=== PATIENT | male | born 1940 ===

== ENCOUNTER 2022-03-28 15:08 | Inpatient (IN) | payer MEDICARE, MEDICAID ==
[2022-03-28 17:17] LABS: ANION GAP 8.2 meq/L (7-15); CHLORIDE,CL 98 mmol/L (98-107); ESTIMATED GFR 45 mL/min (>=60); SODIUM,NA 135 mmol/L (136-145)
[2022-03-28] MEDS ORDERED: Nitroglycerin 0.4 MG Tab.SL SL PRN (18:49)
[2022-03-28] MEDS ORDERED: Polyethylene Glycol 3350 Powder 17 GM Packet PO PRN (18:49)
[2022-03-28] MEDS ORDERED: Apixaban 5 MG Tab PO SCH (19:00)
[2022-03-28] MEDS: metroNIDAZOLE/Normal Saline 500 MG in Premix Bag 1 BAG IV SCH (19:48)
[2022-03-28] MEDS: Metoprolol Succinate 25 MG Tab.ER PO SCH (19:59)
[2022-03-28] MEDS ORDERED: Donepezil 10 MG Tab PO SCH (20:00)
[2022-03-28] MEDS ORDERED: Non-Formulary Medication 1 Each (Divalproex Sodium 500 MG Tablet.Dr) PO SCH (20:00)
[2022-03-28] MEDS ORDERED: Non-Formulary Medication 1 Each (Insulin Glargine,Hum.Rec.Anlog 100 UNIT/ML Insuln.Pen) SQ SCH (20:00)
[2022-03-28] MEDS ORDERED: Polyvinyl Alcohol 1.4% Ophth Soln 15 ML Bottle EYEBOTH SCH (20:00)
[2022-03-28] MEDS: Furosemide 20 MG Tab PO SCH (20:01)
[2022-03-28] MEDS ORDERED: Vancomycin 1.5 GM in Sodium Chloride 0.9% 500 ML IV SCH (21:00)
[2022-03-28] MEDS: Divalproex Sodium Delayed-Release 250 MG Tab.CR PO SCH (21:42)
[2022-03-28] MEDS: Donepezil 10 MG Tab PO SCH (21:44)
[2022-03-28] MEDS: Polyvinyl Alcohol 1.4% Ophth Soln 15 ML Bottle EYEBOTH SCH (21:49)
[2022-03-28] MEDS: Apixaban 5 MG Tab PO SCH (21:49)
[2022-03-28] MEDS: Insulin Glarg,Human.Rec.Analog 100 Unit/ML SUBCUT SCH (21:53)
[2022-03-28] MEDS ORDERED: Temazepam 15 MG Cap PO PRN (22:21)
[2022-03-28] MEDS: Sodium Chloride 0.9% 10 ML Syringe FLUSH PRN (23:09)
[2022-03-29] MEDS: Sodium Chloride 0.9% 10 ML Syringe FLUSH PRN ×2 (03:59→22:59)
[2022-03-29] MEDS: metroNIDAZOLE/Normal Saline 500 MG in Premix Bag 1 BAG IV SCH ×3 (03:59→18:02)
[2022-03-29] MEDS: Gabapentin 100 MG Cap PO SCH ×3 (07:47→17:32)
[2022-03-29] MEDS: Metoprolol Succinate 25 MG Tab.ER PO SCH (07:48)
[2022-03-29] MEDS: Divalproex Sodium Delayed-Release 250 MG Tab.CR PO SCH ×4 (07:48→19:43)
[2022-03-29] MEDS: Apixaban 5 MG Tab PO SCH ×2 (07:48→17:32)
[2022-03-29] MEDS: Magnesium Oxide 400 MG Tab PO SCH ×2 (07:48→17:32)
[2022-03-29] MEDS: Thiamine 100 MG Tab PO SCH (07:49)
[2022-03-29] MEDS: Furosemide 20 MG Tab PO SCH (07:49)
[2022-03-29] MEDS: Isosorbide Mononitrate 30 MG Tab.ER PO SCH (07:49)
[2022-03-29] MEDS: Tamsulosin 0.4 MG Cap.ER PO SCH (07:49)
[2022-03-29] MEDS: Acetaminophen 500 MG Tab PO SCH ×3 (07:49→17:32)
[2022-03-29] MEDS: Polyvinyl Alcohol 1.4% Ophth Soln 15 ML Bottle EYEBOTH SCH ×4 (07:50→19:44)
[2022-03-29] MEDS: Cholecalciferol (Vitamin D3) 10 MCG Tab PO SCH (07:51)
[2022-03-29] MEDS ORDERED: Gabapentin 300 MG Cap PO SCH (08:00)
[2022-03-29] MEDS ORDERED: Non-Formulary Medication 1 Each (Cholecalciferol (Vitamin D3) [Vitamin D3] 400 UNIT Capsul PO SCH (08:00)
[2022-03-29] MEDS ORDERED: Non-Formulary Medication 1 Each (Magnesium [Magnesium] 250 MG Tablet) PO SCH (08:00)
[2022-03-29] MEDS: Non-Formulary Medication 1 Each (Sitagliptin 100 MG Tablet) PO SCH (08:22)
[2022-03-29 11:41] LABS: ANION GAP 8.9 meq/L (7-15)
[2022-03-29] MEDS: Donepezil 10 MG Tab PO SCH (19:42)
[2022-03-29] MEDS: Insulin Glarg,Human.Rec.Analog 100 Unit/ML SUBCUT SCH (19:44)
[2022-03-30] MEDS ORDERED: Sodium Chloride 0.9% 500 ML IV ONE (00:52)
[2022-03-30] MEDS ORDERED: Menthol 10%/Methyl Salicylate 15% 85 GM Tube TOP PRN (00:52)
[2022-03-30] MEDS: Sodium Chloride 0.9% 10 ML Syringe FLUSH PRN ×4 (01:14→21:44)
[2022-03-30] MEDS: metroNIDAZOLE/Normal Saline 500 MG in Premix Bag 1 BAG IV SCH ×3 (02:19→18:01)
[2022-03-30] MEDS: Magnesium Oxide 400 MG Tab PO SCH ×2 (08:34→17:22)
[2022-03-30] MEDS: Gabapentin 100 MG Cap PO SCH ×3 (08:34→17:23)
[2022-03-30] MEDS: Tamsulosin 0.4 MG Cap.ER PO SCH (08:34)
[2022-03-30] MEDS: Polyvinyl Alcohol 1.4% Ophth Soln 15 ML Bottle EYEBOTH SCH ×4 (08:34→19:56)
[2022-03-30] MEDS: Acetaminophen 500 MG Tab PO SCH ×3 (08:34→17:22)
[2022-03-30] MEDS: Cholecalciferol (Vitamin D3) 10 MCG Tab PO SCH (08:34)
[2022-03-30] MEDS: Thiamine 100 MG Tab PO SCH (08:35)
[2022-03-30] MEDS: Furosemide 20 MG Tab PO SCH (08:36)
[2022-03-30] MEDS: Apixaban 5 MG Tab PO SCH ×2 (08:36→17:23)
[2022-03-30] MEDS: Divalproex Sodium Delayed-Release 250 MG Tab.CR PO SCH ×4 (08:36→19:56)
[2022-03-30] MEDS: Isosorbide Mononitrate 30 MG Tab.ER PO SCH (08:44)
[2022-03-30] MEDS: Metoprolol Succinate 25 MG Tab.ER PO SCH (08:44)
[2022-03-30] MEDS: Non-Formulary Medication 1 Each (Sitagliptin 100 MG Tablet) PO SCH (08:45)
[2022-03-30] MEDS: Donepezil 10 MG Tab PO SCH (19:55)
[2022-03-30] MEDS: Insulin Glarg,Human.Rec.Analog 100 Unit/ML SUBCUT SCH (19:57)
[2022-03-31] MEDS: Sodium Chloride 0.9% 10 ML Syringe FLUSH PRN ×5 (02:51→21:47)
[2022-03-31] MEDS: metroNIDAZOLE/Normal Saline 500 MG in Premix Bag 1 BAG IV SCH ×3 (02:54→19:39)
[2022-03-31] MEDS: Magnesium Oxide 400 MG Tab PO SCH ×2 (08:42→17:57)
[2022-03-31] MEDS: Apixaban 5 MG Tab PO SCH ×2 (08:43→17:57)
[2022-03-31] MEDS: Divalproex Sodium Delayed-Release 250 MG Tab.CR PO SCH ×4 (08:43→19:39)
[2022-03-31] MEDS: Gabapentin 100 MG Cap PO SCH ×3 (08:44→17:57)
[2022-03-31] MEDS: Acetaminophen 500 MG Tab PO SCH ×3 (08:44→17:57)
[2022-03-31] MEDS: Thiamine 100 MG Tab PO SCH (08:45)
[2022-03-31] MEDS: Cholecalciferol (Vitamin D3) 10 MCG Tab PO SCH (08:46)
[2022-03-31] MEDS: Polyvinyl Alcohol 1.4% Ophth Soln 15 ML Bottle EYEBOTH SCH ×4 (08:46→19:44)
[2022-03-31] MEDS: Tamsulosin 0.4 MG Cap.ER PO SCH (08:46)
[2022-03-31 09:01] LABS: ANION GAP 9.8 meq/L (7-15)
[2022-03-31] MEDS: Non-Formulary Medication 1 Each (Sitagliptin 100 MG Tablet) PO SCH (10:33)
[2022-03-31] MEDS: Metoprolol Succinate 25 MG Tab.ER PO SCH (10:37)
[2022-03-31] MEDS: Furosemide 20 MG Tab PO SCH (12:48)
[2022-03-31] MEDS: Isosorbide Mononitrate 30 MG Tab.ER PO SCH (12:48)
[2022-03-31] MEDS: Donepezil 10 MG Tab PO SCH (19:39)
[2022-03-31] MEDS: Insulin Glarg,Human.Rec.Analog 100 Unit/ML SUBCUT SCH (19:51)
[2022-04-01] MEDS: Sodium Chloride 0.9% 10 ML Syringe FLUSH PRN ×3 (03:10→11:25)
[2022-04-01] MEDS: metroNIDAZOLE/Normal Saline 500 MG in Premix Bag 1 BAG IV SCH ×2 (03:10→11:20)
[2022-04-01] MEDS: Gabapentin 100 MG Cap PO SCH ×2 (07:06→11:37)
[2022-04-01] MEDS: Divalproex Sodium Delayed-Release 250 MG Tab.CR PO SCH ×2 (07:07→11:37)
[2022-04-01] MEDS: Cholecalciferol (Vitamin D3) 10 MCG Tab PO SCH (07:07)
[2022-04-01] MEDS: Acetaminophen 500 MG Tab PO SCH ×2 (07:07→11:36)
[2022-04-01] MEDS: Apixaban 5 MG Tab PO SCH (07:07)
[2022-04-01] MEDS: Magnesium Oxide 400 MG Tab PO SCH (07:07)
[2022-04-01] MEDS: Thiamine 100 MG Tab PO SCH (07:09)
[2022-04-01] MEDS: Tamsulosin 0.4 MG Cap.ER PO SCH (07:09)
[2022-04-01] MEDS: Furosemide 20 MG Tab PO SCH (07:09)
[2022-04-01] MEDS: Metoprolol Succinate 25 MG Tab.ER PO SCH (07:10)
[2022-04-01] MEDS: Polyvinyl Alcohol 1.4% Ophth Soln 15 ML Bottle EYEBOTH SCH ×2 (07:10→11:38)
[2022-04-01] MEDS: Isosorbide Mononitrate 30 MG Tab.ER PO SCH (07:11)
[2022-04-01 13:52] LABS: ANION GAP 7.4 meq/L (7-15)
== END 2022-04-01 14:40 | DRG 603 ==
LOC: LL.ED 15:08 → LL.MS 18:10
PROVIDERS: ADMIT Physician Assistant; ATTEND Physician Assistant
DX: L03.115 Cellulitis of right lower limb (principal); I48.3 Typical atrial flutter; L97.429 Non-pressure chronic ulcer of left heel and midfoot with unspecified severity; L97.419 Non-pressure chronic ulcer of right heel and midfoot with unspecified severity; L03.116 Cellulitis of left lower limb; E11.621 Type 2 diabetes mellitus with foot ulcer; L03.119 Cellulitis of unspecified part of limb; L97.523 Non-pressure chronic ulcer of other part of left foot with necrosis of muscle; G30.9 Alzheimer's disease, unspecified; F02.80 Dementia in other diseases classified elsewhere, unspecified severity, without behavioral disturbance, psychotic disturbance, mood disturbance, and anxiety; E83.42 Hypomagnesemia; N40.0 Benign prostatic hyperplasia without lower urinary tract symptoms; L97.519 Non-pressure chronic ulcer of other part of right foot with unspecified severity; I11.0 Hypertensive heart disease with heart failure; I50.9 Heart failure, unspecified; K59.09 Other constipation; E78.5 Hyperlipidemia, unspecified; Z79.82 Long term (current) use of aspirin; Z79.01 Long term (current) use of anticoagulants; Z79.899 Other long term (current) drug therapy; Z79.4 Long term (current) use of insulin
CPT/HCPCS: 36415; 71045; 80048; 80053; 80202; 81003; 82947; 83605; 83735; 85025; 85379; 87040; 87070; 87205; 93005; 99284; A9270-GY; J1815-GY; J3370; J3490; J7030; J7050